=== PATIENT | female | born 1955 | race Native Hawaiian/Other Pacific Islander ===

== ENCOUNTER 2018-07-14 12:39 | Outpatient (CLI) | payer MEDICARE | END 2018-07-14 12:40 | disposition home or self-care (01) | LOC: C.MAMMO 12:39 | DX: Z12.31 Encounter for screening mammogram for malignant neoplasm of breast (principal) ==

== ENCOUNTER 2018-09-17 13:06 | Outpatient (CLI) | payer MEDICARE | END 2018-09-17 13:07 | disposition home or self-care (01) | LOC: C.CTH 13:06 | DX: R10.9 Unspecified abdominal pain (principal); R74.8 Abnormal levels of other serum enzymes ==

== ENCOUNTER 2018-09-22 13:00 | Outpatient (CLI) | payer MEDICARE | END 2018-09-22 13:01 | disposition home or self-care (01) | LOC: C.MAMMO 13:00 | DX: R92.8 Other abnormal and inconclusive findings on diagnostic imaging of breast (principal); N64.4 Mastodynia ==